=== PATIENT | female | born 1995 | race Caucasian/White ===

== ENCOUNTER 2017-05-13 08:59 | Emergency (ER) | payer BC ==
[~2017-05-13] VITALS: Ht 165.1 cm; Wt 62.2 kg
[2017-05-13 09:06] VITALS: Ht 165.1 cm; Wt 62.2 kg
[2017-05-13] MEDS ORDERED: SPIR50TA2 PO (09:32)
[2017-05-13] MEDS ORDERED: KETOROLAC TROMETHAMINE 30 MG/ML VIAL IV STA (09:54)
[2017-05-13] MEDS ORDERED: ACETAMINOPHEN 325 MG TAB PO STA (09:54)
--- NOTE | 2017-05-13 09:59 | EMERGENCY ROOM VISIT NOTE ---
History Report prepared by Gabriela: Sadny Gonzalez Under the Supervision of: Dr. Kami Hamm M.D. 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 She states that her body temperature was 100.2 last night. She states that she began to experience a scratchy throat, though did not have difficulty swallowing. She notes that she took three Motrin, Sudafed, and NyQuil last night. She notes that she did not sleep well throughput the night. She notes chills, fevers, night sweats, and headache. She currently rates her pain a 4/10 in severity. She states woke up with difficulty swallowing and a fever of 102.4. She went to [facility] and was registering to be seen when she felt lightheaded while standing, so she sat down and then she passed out. She states that she has passed out before from donating blood. She states that her fever increased to 103 while at [facility]. She denies any underlying medical problems. She denies any . She has a history of strep throat and tonsillitis. She denies any neck pain. 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 Review of Systems See HPI for pertinent positives & negatives. A total of 10 systems reviewed and were otherwise negative. Past Medical & Surgical Patient denies any pertinent past medical or past surgical history. Family History Cancer Diabetes mellitus Heart disease Hypertension Social History Smoking Status: Never Smoker Smokeless Tobacco Use: No Alcohol Use: occasionally Drug Use: none Marital Status: single Housing Status: lives with roommate Occupation Status: student Current/Historical Medications Scheduled Oseltamivir (Tamiflu), 75 MG PO BID Spironolactone (Aldactone), 50 MG PO DAILY Allergies Coded Allergies: Kiwi (Unverified Allergy, Unknown, , 05/13/17) Pineapple (Unverified Allergy, Unknown, , 05/13/17) Physical Exam Vital Signs Date Time Temp Pulse Resp B/P (MAP) Pulse Ox O2 Delivery O2 Flow Rate FiO2 05/13/17 13:09 97 109/68 100 05/13/17 12:25 97 95/57 98 Room Air 05/13/17 11:25 38.1 05/13/17 10:48 102 18 89/60 05/13/17 09:06 39.3 116 19 114/69 Room Air Physical Exam Vital signs reviewed. General: Well-appearing, in no significant distress. HEENT: No scleral icterus, PERRLA, neck supple. Atraumatic. Right greater than left tonsillar hypertrophy with cobblestoning and post nasal drip. Cardiovascular: Regular rate and rhythm, no extra sounds. Pulmonary: Clear to auscultation bilaterally, normal work of breathing. Abdomen: Soft, nontender, nondistended, positive bowel sounds. Musculoskeletal: Atraumatic, no peripheral edema. Neurologic: Patient awake alert and oriented x 3 Skin: Warm to the touch, dry, no rash. Noted to be febrile. Medical Decision & Procedures Laboratory Results 05/13/17 10:05 Red Blood Count 4.52, Mean Corpuscular Volume 91.4, Mean Corpuscular Hemoglobin 31.0, Mean Corpuscular Hemoglobin Concent 33.9, Mean Platelet Volume 11.8, Neutrophils (%) (Auto) 83.8, Lymphocytes (%) (Auto) 6.0, Monocytes (%) (Auto) 9.7, Eosinophils (%) (Auto) 0.0, Basophils (%) (Auto) 0.2, Neutrophils # (Auto) 5.21, Lymphocytes # (Auto) 0.37, Monocytes # (Auto) 0.60, Eosinophils # (Auto) 0.00, Basophils # (Auto) 0.01 05/13/17 10:05 Test 05/13/17 10:05 05/13/17 10:10 White Blood Count 6.21 K/uL (4.8-10.8) Red Blood Count 4.52 M/uL (4.2-5.4) Hemoglobin 14.0 g/dL (12.0-16.0) Hematocrit 41.3 % (37-47) Mean Corpuscular Volume 91.4 fL (80-100) Mean Corpuscular Hemoglobin 31.0 pg (25-34) Mean Corpuscular Hemoglobin Concent 33.9 g/dl (32-36) Platelet Count 215 K/uL (130-400) Mean Platelet Volume 11.8 fL (7.4-10.4) Neutrophils (%) (Auto) 83.8 % Lymphocytes (%) (Auto) 6.0 % Monocytes (%) (Auto) 9.7 % Eosinophils (%) (Auto) 0.0 % Basophils (%) (Auto) 0.2 % Neutrophils # (Auto) 5.21 K/uL (1.4-6.5) Lymphocytes # (Auto) 0.37 K/uL (1.2-3.4) Monocytes # (Auto) 0.60 K/uL (0.11-0.59) Eosinophils # (Auto) 0.00 K/uL (0-0.5) Basophils # (Auto) 0.01 K/uL (0-0.2) RDW Standard Deviation 41.4 fL (36.4-46.3) RDW Coefficient of Variation 12.3 % (11.5-14.5) Immature Granulocyte % (Auto) 0.3 % Immature Granulocyte # (Auto) 0.02 K/uL (0.00-0.02) Anion Gap 9.0 mmol/L (3-11) Est Creatinine Clear Calc Drug Dose 95.7 ml/min Estimated GFR () 116.0 Estimated GFR (Non- 100.1 BUN/Creatinine Ratio 10.1 (10-20) Calcium Level 8.7 mg/dl (8.5-10.1) Magnesium Level 1.9 mg/dl (1.8-2.4) Total Bilirubin 0.4 mg/dl (0.2-1) Direct Bilirubin < 0.1 mg/dl (0-0.2) Aspartate Amino Transf (AST/SGOT) 20 U/L (15-37) Alanine Aminotransferase (ALT/SGPT) 21 U/L (12-78) Alkaline Phosphatase 69 U/L (45-117) Total Protein 8.2 gm/dl (6.4-8.2) Albumin 4.1 gm/dl (3.4-5.0) Lipase 176 U/L (73-393) Influenza Type A (RT-PCR) POS for Influ A (NEG) Influenza Type A Antigen Neg for Influ A (NEG) Influenza Type B Antigen Neg for Influ B (NEG) Influenza Type B (RT-PCR) Neg for Influ B (NEG) Laboratory results per my review. Medications Administered Medications (Trade) Dose Ordered Sig/Nidia Route Start Time Stop Time Status Last Admin Dose Admin Acetaminophen (Tylenol Tab) 650 mg NOW STAT PO 05/13/17 09:54 05/13/17 09:59 DC 05/13/17 10:40 650 MG Ketorolac Tromethamine (Toradol Inj) 30 mg NOW STAT IV 05/13/17 09:54 05/13/17 09:59 DC 05/13/17 10:41 30 MG Sodium Chloride 1,000 ml @ 999 mls/hr Q1H1M STAT IV 05/13/17 11:36 05/13/17 12:36 DC 05/13/17 11:36 999 MLS/HR Sodium Chloride 1,000 ml @ 999 mls/hr Q1H1M STAT IV 05/13/17 12:19 05/13/17 13:19 DC 05/13/17 12:19 999 MLS/HR Oseltamivir Phosphate (Tamiflu Cap) 75 mg NOW STAT PO 05/13/17 12:19 05/13/17 12:20 DC 05/13/17 12:28 75 MG ED Course 0953: Past medical records reviewed. The patient was evaluated in room B12B. A complete history and physical examination was performed. 0954: Ordered Toradol 30 mg IV and Tylenol 650 mg PO 1136: Ordered Sodium Chloride 1,000 ml @ 999 mls/hr IV 1216: I reassessed the patient at this time. She is feeling better and resting comfortably. I discussed the results and treatment plan with the patient. I answered all pertaining questions that she had. She expressed understanding and verbalized agreement. The patient will be discharged home. 1219: Ordered Tamiflu 75 mg PO and Sodium Chloride 1,000 ml @ 999 mls/hr IV Medical Decision Differential Diagnoses: Influenza, other viral illness, pneumonia, urinary tract infection, metabolic abnormality, medication effect, cellulitis, meningitis, intra-abdominal source. This patient was evaluated and appeared to be in no significant distress. IV access was obtained and laboratory work was drawn. Patient was given Tylenol 650 mg orally area. She was hydrated with normal saline solution due to a mild hypotension and given IV Toradol for pain and fever. Rapid strep swab is negative and will be sent for formal culture. Influenza testing is positive for influenza A. Patient's symptoms started less than 24 hours ago, she was given Tamiflu 75 mg by mouth. Patient was advised on symptomatic management and will continue Tamiflu twice a day 5 days. She will follow-up with [facility] this week and return to the ER for worsening of symptoms or any medical concerns. Medication Reconcilliation Current Medication List: was personally reviewed by me Blood Pressure Screening Patient's blood pressure: Low blood pressure Secondary to dehydration Impression Primary Impression: Influenza A Scribe Attestation The scribe's documentation has been prepared under my direction and personally reviewed by me in its entirety. I confirm that the note above accurately reflects all work, treatment, procedures, and medical decision making performed by me. Departure Information Dispostion Home / Self-Care Prescriptions Oseltamivir (Tamiflu) 75 Mg Cap 75 MG PO BID for 5 Days, #10 CAP Prov: Kami Hamm M.D. 05/13/17 Referrals No Doctor, Assigned (PCP) Forms HOME CARE DOCUMENTATION FORM, IMPORTANT VISIT INFORMATION, WORK / SCHOOL INSTRUCTIONS Patient Instructions My [facility] Additional Instructions Diagnosis: Influenza A Tamiflu 75 mg twice daily for 5 days Tylenol 650 mg every 6 hours as needed for pain or fever Ibuprofen 600 mg every 6 hours as needed for pain or fever with food. Drink plenty of clear liquids. Return to the ED for worsening of symptoms or any medical concerns.
[2017-05-13 10:38] LABS: BASO % 0.2 %; BASO ABS # 0.01 K/uL (0-0.2); HEMATOCRIT 41.3 % (37-47); IG# 0.02 K/uL (0.00-0.02); LYMPH ABS # 0.37 K/uL (1.2-3.4); MEAN CELL VOLUME 91.4 fL (80-100); MEAN CORPUSCULAR HGB CONC 33.9 g/dl (32-36); MEAN PLATELET VOLUME 11.8 fL (7.4-10.4); MONO % 9.7 %; NEUT % 83.8 %; NEUT ABS # 5.21 K/uL (1.4-6.5); PLATELET COUNT 215 K/uL (130-400); RED CELL DISTRIBUTION WIDTH CV 12.3 % (11.5-14.5); RED CELL DISTRIBUTION WIDTH SD 41.4 fL (36.4-46.3); WHITE BLOOD COUNT 6.21 K/uL (4.8-10.8)
[2017-05-13 10:57] LABS: ALBUMIN 4.1 gm/dl (3.4-5.0); ALT/SGPT 21 U/L (12-78); BLOOD UREA NITROGEN 8 mg/dl (7-18); CALCIUM 8.7 mg/dl (8.5-10.1); CARBON DIOXIDE 26 mmol/L (21-32); CREATININE 0.83 mg/dl (0.60-1.20); GLUCOSE 90 mg/dl (70-99); LIPASE 176 U/L (73-393); POTASSIUM 3.8 mmol/L (3.5-5.1); SODIUM 137 mmol/L (136-145)
[2017-05-13 11:00] LABS: ALKALINE PHOSPHATASE 69 U/L (45-117); AST/SGOT 20 U/L (15-37); TOTAL PROTEIN 8.2 gm/dl (6.4-8.2)
[2017-05-13 11:16] LABS: INFLUENZA B ANTIGEN Neg for Influ B (NEG)
[2017-05-13 11:25] VITALS: TEMP 38.1
[2017-05-13] MEDS ORDERED: SODIUM CHLORIDE 0.9% 1000ML 1,000 ML IV STA ×2 (11:36→12:19)
[2017-05-13 12:12] LABS: INFLUENZA B PCR Neg for Influ B (NEG)
[2017-05-13 12:14] LABS: INFLUENZA A PCR POS for Influ A (NEG)
[2017-05-13] MEDS ORDERED: OSELTAMIVIR PHOSPHATE 75 MG CAP PO STA (12:19)
[2017-05-13] MEDS ORDERED: OSEL75CA12 PO (12:37)
[2017-05-13 13:09] VITALS: BP 109/68; PULSE 97; O2SAT 100
== END 2017-05-13 13:11 | disposition home or self-care (01) ==
LOC: C.EDB 09:04
DX: J10.1 Influenza due to other identified influenza virus with other respiratory manifestations (principal); I95.9 Hypotension, unspecified; Z80.9 Family history of malignant neoplasm, unspecified; Z83.3 Family history of diabetes mellitus; Z82.49 Family history of ischemic heart disease and other diseases of the circulatory system